=== PATIENT | male | born 1995 | race Caucasian/White ===

== ENCOUNTER 2023-11-27 11:38 | Emergency (ER) | payer BC, SELFPAY ==
--- NOTE | 2023-11-27 11:49 | ED.SKABFB ---
HPI - Skin/Abscess/Foreign Bdy General Chief complaint: Skin/Abscess/Foreign Body Stated complaint: rash Time Seen by Provider: 11/27/23 11:49 Source: patient, RN notes reviewed and old records reviewed Mode of arrival: ambulatory Limitations: no limitations History of Present Illness HPI narrative: 27-year-old male to [facility] for complaint of rash to bilateral lower legs arms and stomach For 1 week. Patient reports being in the [place] 1 week ago. Patient endorses he reacts to poison any time he is in [place] he has to receive a shot when this occurs. Patient states it has been over 2 years since this has occurred. Patient reports that he does not have primary care provider and that he is usually seen at urgent cares for this issue. Patient denies rash in any other locations, cough, shortness of breath, difficulty swallowing, pertinent medical history, seasonal allergies. Patient endorses allergy to penicillins. Patient able to tolerate fluids by mouth. Respirations even and nonlabored. Patient speaking in full sentences without difficulty. Patient in no acute distress. Related Data Home Medications Medication Instructions Recorded Confirmed No Home Medications 11/27/23 11/27/23 Allergies Allergy/AdvReac Type Severity Reaction Status Date / Time amoxicillin Allergy Intermediate Swelling Verified 11/27/23 12:01 Penicillins Allergy Intermediate Swelling Verified 11/27/23 12:01 Review of Systems Review of Systems: All systems reviewed & are unremarkable except as noted in HPI and below Constitutional: Constitutional: Reports no additional constitutional complaints Eyes: Eyes: Reports no additional eye complaints ENT: Reports system reviewed and no additional complaints, except as documented Cardiovascular: Cardiovascular: Reports no additional cardiovascular complaints, Denies chest pain and Denies dyspnea Respiratory: Respiratory: Reports no additional respiratory complaints, Denies cough and Denies dyspnea Musculoskeletal: Musculoskeletal: Reports no additional musculoskeletal complaints Integumentary/Breasts: Skin/Breast: Reports rash ( Bilateral lower legs, bilateral arms, abdomen) Neurologic: Reports system reviewed and no additional complaints, except as documented Psychiatric: Psychiatric: Reports no additional psychiatric complaints PMFSH Comments At the time of my signature, I reviewed and agree with the nursing past medical, surgical, social, and family history. There is no relevant family history pertinent to the patient complaint. Exam Const: General: cooperative, healthy appearing, no acute distress, alert, uncomfortable and well nourished Nutritional Appearance: well nourished Orientation/consciousness: patient oriented x3 Limitations: no limitations HENMT: Head: normal to inspection Ears: external ears normal Face/Nose/Sinus: Normal external nose present, Normal nares present, normal facial exam, No erythema and No edema Face and sinus: normal facial exam, no erythema and no edema Mouth: Yes Normal oral and palatal mucosa present Eyes: General: appearance normal, both eyes and all related structures Neck: Neck: normal visual inspection, full ROM and no meningeal signs Lymphatic: no lymphadenopathy noted and no lymphedema noted Chest: Chest palpation & inspection: normal inspection of the chest Resp: Effort & Inspection: normal respiratory effort and able to speak in complete sentences Auscultation: clear to auscultation bilaterally Cardio: Jugular venous distension: no JVD Rate: regular rate Rhythm: regular rhythm Back/Spine/Pelvis: Cervical Spine: cervical ROM normal Skin: General skin exam: rashes Other: erythematous, raised rash to bilateral lower legs, bilateral lower arms and abdomen. Neuro: General: patient oriented x3, gait normal, moves all extremities and no meningeal signs Speech: normal speech Gait exam (Neuro): Normal gait present Extrem:
[2023-11-27 11:56] VITALS: BP 130/76; PULSE 61; RESP 16; TEMP 36.6; O2SAT 100
[2023-11-27] MEDS: methylPREDNISolone SOD SUCC 125 MG VIAL IM (12:19)
== END 2023-11-27 12:23 | disposition home or self-care (01) ==
PROVIDERS: Emergency Provider Nurse Practitioner Family
DX: L25.9 Unspecified contact dermatitis, unspecified cause (principal)
CPT/HCPCS: 96372; 99213; G0463; J2919

== ENCOUNTER 2023-12-13 08:45 | Emergency (ER) | payer BC, SELFPAY ==
[2023-12-13 08:57] VITALS: BP 134/71; PULSE 51; RESP 20; TEMP 36.6; O2SAT 98
--- NOTE | 2023-12-13 09:17 | ED.MALEGU ---
HPI - Male Genitourinary General Chief complaint: Urogenital-Male Stated complaint: Testicle Pain Time Seen by Provider: 12/13/23 09:18 Source: patient Mode of arrival: ambulatory Limitations: no limitations History of Present Illness HPI Narrative: 28 yo M presents with c/o L testicular pain for approx. 1 hour. hx of varicocele to L testicle. Saw a urologist approx. 2 yrs ago and did PT and was told did not need surgery. Has had intermittent pain the past few years that resolved quickly. stepped out of truck today and excruciating pain that is not resolving. No swelling. All systems reviewed and negative except as noted above. Related Data Home Medications Medication Instructions Recorded Confirmed No Home Medications 11/27/23 12/13/23 Allergies Allergy/AdvReac Type Severity Reaction Status Date / Time amoxicillin Allergy Intermediate Swelling Verified 11/27/23 12:01 Penicillins Allergy Intermediate Swelling Verified 12/13/23 09:18 Review of Systems Review of Systems: CONSTITUTIONAL: Denies fever, chills, or sweats. EYES: Denies visual changes, redness, or discharge. ENT: Denies rhinorrhea, congestion, sore throat, or otalgia. CARDIOVASCULAR: Denies chest pain, palpitations, or edema. RESPIRATORY: Denies cough or dyspnea. GASTROINTESTINAL: Denies abdominal pain, nausea, vomiting, or diarrhea. GENITOURINARY: Denies dysuria or hematuria. Reports pain to testicle. SKIN: Denies rash or itching. MUSCULOSKELETAL: Denies back pain, joint pain, or myalgia. NEUROLOGIC: Denies headache, numbness, or weakness. PSYCHIATRIC: Denies anxiety or depression. All other systems reviewed are negative, except as documented in HPI. PMFSH Comments At time of signature, agree with nursing past medical, surgical, social and family history. There is no relevant family history pertinent to the presenting complaint. Exam Narrative: GENERAL: This is a well-nourished, well-developed patient, in no apparent distress. HEAD: normocephalic, atraumatic. EYES: PERRL. Sclera clear/white. Vision is grossly intact. EARS: External ears normal NOSE: External nose normal NECK: Neck supple, non-tender without lymphadenopathy, masses or thyromegaly. CARDIOVASCULAR: Regular rate and rhythm without murmurs, gallops, or rubs. RESPIRATORY: Clear to auscultation. Breath sounds equal bilaterally. No wheezes, rales, or rhonchi. GASTROINTESTINAL: Abdomen soft, non-tender, nondistended. Bowel sounds are active. No hepato-splenomegaly, or palpable masses. No guarding. SKIN: warm, Dry, intact with no suspicious lesions or rash, good texture and turgor. NEURO: awake, alert, and oriented to person, place and time. There were no obvious focal neurologic abnormalities. EXTREMITIES: No joint tenderness, effusion, or edema noted. No calf tenderness. Negative Homans sign bilaterally. BACK: Nontender without deformity. Urogenital: L groin and testicle pain. no swelling or color change. Course Course Level of Care: Express Care Visit Vital Signs Vital signs: Vital Signs Temperature 36.6 C 12/13/23 08:57 Pulse Rate 51 L 12/13/23 08:57 Respiratory Rate 20 12/13/23 08:57 Blood Pressure 134/71 12/13/23 08:57 Pulse Oximetry 98 12/13/23 08:57 Oxygen Delivery Room Air 12/13/23 08:57 Temperature 36.6 C 12/13/23 08:57 Pulse Rate 51 L 12/13/23 08:57 Respiratory Rate 20 12/13/23 08:57 Blood Pressure 134/71 12/13/23 08:57 Pulse Oximetry 98 12/13/23 08:57 Oxygen Delivery Room Air 12/13/23 08:57 Reviewed Transfer Transfered to: [facility] Transportation: Other ( private car) Transfer rationale: transfer to ER for ultrasound left testicle to further evaluate pain Accepting physician: Dr. Francisco MDM - Male Genitourinary MDM Narrative Medical decision making narrative: Patient is aware of diagnosis, understands and agrees to treatment plan. Anticipatory guidance given. Patient agrees to follow-up as dir
== END 2023-12-13 09:29 | disposition short-term general hospital (02) ==
PROVIDERS: Emergency Provider Nurse Practitioner Family; PCP Emergency Medicine
DX: N50.812 Left testicular pain (principal)
CPT/HCPCS: 99212; G0463

== ENCOUNTER 2023-12-13 09:48 | Emergency (ER) | payer BC, SELFPAY ==
--- NOTE | ~2023-12-13 | US_ITS ---
US scrotum doppler INDICATION: Evaluate for torsion. TECHNIQUE: Testicular sonogram utilizing grayscale and color Doppler FINDINGS: The testes are normal in size and appearance. No focal lesions are seen. The right testes measures 5.4 x 3 x 3.9 cm centimeters, and the left testis measures 5.3 x 2.8 x 3.1 cm cm. There is n ormal vascular flow to both testes. The right and left epididymides appear normal. There is no varicocele or hydrocele. IMPRESSION: 1. NORMAL TESTICULAR ULTRASOUND. Reviewed, dictated and finalized at location B.
[2023-12-13 09:53] VITALS: PULSE 71; RESP 16; TEMP 36.8; O2SAT 99
[2023-12-13 09:56] VITALS: BP 140/89
[2023-12-13 10:07] LABS: Appearance Urine Clear (Clear); Bilirubin Urine Negative (Negative); Blood Urine Negative (Negative); Color Urine Yellow (Yellow); Glucose Urine UA Negative (Negative); Ketones Urine Negative (Negative); Leukocyte Esterase Ur Negative LEU/UL (Negative); Nitrate Urine Negative (Negative); Protein Urine Negative (Negative); Specific Grav Ur 1.018 (1.001-1.035); Urobilinogen Urine 0.2 mg/dL (<2.0); pH Urine 5.5 (5.0-9.0)
[2023-12-13 10:10] LABS: Add Urine Microscopic? NO
--- NOTE | 2023-12-13 10:40 | ED.GENADULT ---
HPI - General Adult General Chief complaint: Urogenital-Male Stated complaint: testicular pain Time Seen by Provider: 12/13/23 10:33 History of Present Illness HPI narrative: Patient is a 28-year-old male with history of varicocele on the left side here with left testicular pain. He states he was 1st diagnosed with varicocele about 1 year ago at [place], saw a urologist in that area. He states he has had intermittent left testicular pain since that time. He notes that it tends to be worse when he lifts heavy objects at work or steps a certain way. Earlier today he was stepping off of an excavator and began having sudden onset left testicular pain. He notes that it seemed to last longer than usual so he went into an urgent care for evaluation. They referred him into the ER for further workup. He currently notes he has some diffuse left testicular pain which radiates into his left groin. No nausea, vomiting, difficulty with bowel movements. No prior abdominal surgeries. He denies bulging of tissue into the groin or testicle. No penile discharge. No penile pain. No concern for STI. He has not taken any medications for his pain in is refusing Tylenol and ibuprofen here as well. Related Data Home Medications Medication Instructions Recorded Confirmed No Home Medications 11/27/23 12/13/23 Allergies Allergy/AdvReac Type Severity Reaction Status Date / Time amoxicillin Allergy Intermediate Swelling Verified 11/27/23 12:01 Penicillins Allergy Intermediate Swelling Verified 12/13/23 09:18 Review of Systems Review of Systems: All systems reviewed & are unremarkable except as noted in HPI and below Exam Narrative: GENERAL: Well-appearing, well-nourished, and in no acute distress. HEAD: Normocephalic, atraumatic. EYES: PERRLA and EOMI. ENT: Nares clear. Mucous membranes moist. NECK: Supple. CHEST: Unlabored respirations HEART: Normal peripheral pulses. ABDOMEN: Soft, nontender, nondistended. 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 Patient has some left testicular tenderness diffusely, no obvious mass, deformity, overlying skin changes. He has mild left inguinal tenderness, no obvious hernia sac appreciated. No overlying skin changes in this area. EXTREMITIES: Normal range of motion. No edema. SKIN: Warm, dry, no rash. Course Course Emergency Course: Chart review performed, patient here with left-sided testicular pain x2 hours. History of varicocele, triage vitals normal. No prior visits in our system for similar aside from the urgent care visit earlier today. Patient seen evaluated, nontoxic appearing. He has left testicular tenderness as well as some inguinal tenderness without any obvious hernia or testicular mass. UA, gonorrhea, Chlamydia, Trichomonas as well as testicular ultrasound been ordered. Patient refuses Tylenol and ibuprofen for pain. Ultrasound negative. Urine negative for UTI. Gonorrhea, chlamydia, Trichomonas negative. Patient advised to follow-up closely with his urologist as well as primary care doctor. Advised to take Tylenol and ibuprofen as needed for pain. The results of pertinent diagnostic studies and exam findings were discussed. The patient?s provisional diagnosis and plan of care were discussed with the patient and present family. The patient and/or present family expressed understanding of the diagnosis and plan. The nurse was instructed to provide written instructions and appropriate follow-up information. The patient understands their need and responsibility to obtain additional follow-up as instructed. The risks of medications administered and prescribed were discussed with the patient and family present. Vital Signs Vital signs: Vital Signs Temperature 98.2 F 12/13/23 09:53 Pulse Rate 71 12/13/23 09:53 Respiratory Rate 16 12/13/23 09:53 Pulse Oximetry 99 12/13/23 09:53 Temperature 98.2 F 12/13/23 09:53 Pulse Rate 71 12/13/23 09
[2023-12-13 11:56] LABS: Trichomonas Vag PCR NOT DETECTED (NOT DETECTE)
[2023-12-13 12:20] LABS: Chlamydia trachomatis NOT DETECTED (NOT DETECTE); Neisseria gonorrhoeae PCR NOT DETECTED (NOT DETECTE)
== END 2023-12-13 12:39 | disposition home or self-care (01) ==
PROVIDERS: Emergency Provider Student in an Organized Health Care Education/Training Program
DX: N50.812 Left testicular pain (principal); Z11.3 Encounter for screening for infections with a predominantly sexual mode of transmission
CPT/HCPCS: 76870; 81003; 87491; 87591; 87661; 93976; 99284